=== PATIENT | female | born 1990 | race Caucasian/White ===

== ENCOUNTER 2022-10-13 15:09 | Observation (INO) | payer MEDICAID, SELFPAY ==
[2022-10-13 15:10] VITALS: BP 107/71; PULSE 101; RESP 16; TEMP 35.4; O2SAT 100; BMI 23.3
--- NOTE | 2022-10-13 16:16 | ED.RN ---
pt falling asleep in chair in hallway. awakens easily.
--- NOTE | 2022-10-13 16:58 | EX.ED.SAOD ---
HPI History of Present Illness Chief Complaint: Substance Abuse Narrative Narrative: 32-year-old female presenting for opiate detox. Last use was last night. Patient states has been snorting heroin for the last 6 months. She will use heroin or fentanyl. She is from [facility] but came out here to detox. She states she wanted to get away. [facility] Medical History (Updated 10/13/22 @ 17:42 by Mya Zaragoza) Substance abuse Allergy/AdvReac Type Severity Reaction Status Date / Time No Known Allergies Allergy Verified 10/13/22 16:16 Social History Smoking Status: Current every day smoker tobacco type: cigarettes ROS ROS ED Constitutional Constitutional ED: Denies chills, fever(s) or sweats Eyes Eyes: Denies blurry vision or change in vision ENT ENT ED: Denies ear pain or sore throat Cardiovascular Cardiovascular: Denies chest pain, palpitations or racing heartbeat Respiratory/Chest Respiratory/Chest: Denies cough, dyspnea or sputum Gastrointestinal Gastrointestinal: Denies abdominal pain, constipation, diarrhea, nausea or vomiting Genitourinary Genitourinary ED: Denies dysuria, hematuria or urinary frequency Musculoskeletal Musculoskeletal: Denies arthralgias, myalgias or neck pain Integumentary Denies abscess, Abrasions or rash Neurologic Neurologic: Denies headache(s), paresthesias or weakness Psychiatric Psychiatric: Denies anxiety, depression, suicidal ideation or suicidal thoughts Endocrine Endocrinology: Denies polydipsia or polyuria EXAM Physical Exam Const Vital Signs: 10/13/22 15:10 Temperature 95.8 F L Temperature Source Temporal Pulse Rate 101 H Respiratory Rate 16 Blood Pressure 107/71 Blood Pressure Mean 83 Pulse Ox 100 Oxygen Delivery Method Room Air General Appearance ED: Negative for pallor HEENT Reports normocephalic, head/scalp atraumatic and moist mucous membranes Eyes PERRL and EOMs intact bilaterally Neck no lymphadenopathy and supple Chest Wall inspection of chest normal and palpation of chest normal Resp normal respiratory effort and clear to auscultation bilaterally Auscultation: Negative for rales, rhonchi or wheezes Cardio regular rate and regular rhythm GI normal to inspection, nondistended, normoactive bowel sounds and non-distended Auscultation: normoactive bowel sounds Palpation: soft Narrative: Deferred Extremity normal to inspection General Extremety ED: Yes edema and tenderness General Extremity: edema Neuro oriented x3 and CN's II-XII intact bilaterally Sensorium / Orientation: alert Motor Exam: strength 5/5 throughout Psych mental status grossly normal Attitude: No agitated Skin no rashes or lesions noted and no wounds General Skin Exam: Negative for jaundice or pallor MDM MDM MDM Narrative Medical decision making narrative: 32-year-old female presenting for opiate detox. Medical clearance labs will be obtained. CBC for white blood cell count, hemoglobin, differential. CMP for liver function, renal function, electrolytes. Urine drug screen to assess for drugs of abuse. EtOH as well. Serum hCG to assess for . CBC shows a white blood cell count of 7.1, hemoglobin 11.2, platelets 241. CMP shows normal liver function, renal function, Leukos 73. Urine drug screen positive for amphetamines, MDMA, benzodiazepine, cannabinoids. EtOH negative. hCG negative patient's olman with hospitalist for admission. Impression: 1. Presentation for opioid detox 2. Amphetamine abuse 3. MDMA abuse Lab Data Attestation: I reviewed the patient's lab results. Labs: Laboratory Results - last 24 hr 10/13/22 10/13/22 10/13/22 17:29 17:38 17:38 WBC 7.1 RBC 4.83 Hgb 11.2 L Hct 38.0 MCV 78.7 L MCH 23.2 L MCHC 29.5 L RDW Std Deviation 52.6 H RDW Coeff of Blayne 19.0 H Plt Count 241 MPV 10.2 Immature Gran % (Auto) 0.400 Neut % (Auto) 46.4 L Lymph % (Auto) 37.4 [place] % (Auto) 5.0 Eos % (Auto) 9.0 H Baso % (Auto) 1.8 H Absolute Neuts (auto) 3.3 Absolute Lymphs (auto) 2.67 Nucleated RBC % 0 Sodium Potassium Chloride Carbon Dioxide Anion Gap BUN Creatinine Estim Creat Clear Calc Est GFR (MDRD) Af Amer Est GFR (MDRD) Non-Af BUN/Creatinine Ratio Glucose Calcium Total Bilirubin AST ALT Alkaline Phosphatase Total Protein Albumin Globulin Albumin/Globulin Ratio Serum , Qual NEGATIVE Urine Opiates Screen NEGATIVE Urine Methadone Screen NEGATIVE Ur Barbiturates Screen NEGATIVE Ur Phencyclidine Scrn NEGATIVE Ur Amphetamines Screen POSITIVE H MDMA (Ecstasy) Screen POSITIVE H U Benzodiazepines Scrn POSITIVE H Urine Cocaine Screen NEGATIVE U Cannabinoids Screen POSITIVE H Ur Drug Screen Comment 10/13/22 17:38 WBC RBC Hgb Hct MCV MCH MCHC RDW Std Deviation RDW Coeff of Blayne Plt Count MPV Immature Gran % (Auto) Neut % (Auto) Lymph % (Auto) [place] % (Auto) Eos % (Auto) Baso % (Auto) Absolute Neuts (auto) Absolute Lymphs (auto) Nucleated RBC % Sodium 139 Potassium 3.5 Chloride 104 Carbon Dioxide 30.0 Anion Gap 5 BUN 25 H Creatinine 1.00 Estim Creat Clear Calc 74.02 Est GFR (MDRD) Af Amer 83 Est GFR (MDRD) Non-Af 69 BUN/Creatinine Ratio 25.0 H Glucose 73 L Calcium 8.7 Total Bilirubin 0.20 AST 12 L ALT 12 L Alkaline Phosphatase 76 Total Protein 6.5 Albumin 3.2 Globulin 3.3 Albumin/Globulin Ratio 1.0 Serum , Qual Urine Opiates Screen Urine Methadone Screen Ur Barbiturates Screen Ur Phencyclidine Scrn Ur Amphetamines Screen MDMA (Ecstasy) Screen U Benzodiazepines Scrn Urine Cocaine Screen U Cannabinoids Screen Ur Drug Screen Comment Discharge Plan Triage Chief Complaint: Substance Abuse ED Provider: Ruben Fields Dx/Rx/DC Orders Primary Care Provider: Care Physician,No Primary Referrals: NOT,DEFINED [Non-Staff] -
--- NOTE | 2022-10-13 16:59 | CM.ED ---
Addendum entered by Destiny Porras 10/13/22 18:49: ABUNDIO provided patient with PCP information as per chart review patient has no PCP. Destiny FRANCIS Original Note: ABUNDIO Note Referral Reason: RAMP Referral Source: Case Find SW met with patient to discuss the RAMP program. Patient reports they are detoxing from opiates and xanax Patient said that she last used last night and when asked about how much she used she said not much... Patient reports using 1/4-1/2 gram a day but was attempting to wean herself. Patient is not linked with outpatient AOD provider currently but has been linked with [facility] in the past. Patient said that she wants the residential program at [facility] and had called them a couple of days ago. Patient was advised that the [facility] program includes no outside food or visitors, no phone access and all personal items are secured. ABUNDIO called Treatment Navigator and updated her regarding patient?s admission to [facility]. Plan: RAMP Destiny FRANCIS
[2022-10-13 17:48] LABS: Absolute Lymphocyte Count 2.67 X10^3/uL (0.83-4.51); Absolute Neutrophil Count 3.3 X10^3/uL (2.0-7.7); Basophil# 0.13 X10^3/uL; Basophil% 1.8 % (0-1); Eosinophil# 0.64 X10^3/uL; Hemoglobin 11.2 g/dL (12.0-15.0); Lymphocyte # 2.67 X10^3/ul (0.83-4.51); Lymphocyte % 37.4 % (19-41); Mean Corp Hgb Conc 29.5 g/dL (32-36); Mean Corpuscular Hgb 23.2 pg (27.0-32.0); Mean Corpuscular Volume 78.7 fL (81-99); Mean Platelet Vol. 10.2 fl (6.2-12.0); Monocyte# 0.36 X10^3/uL; NRBC Flagged by Analyzer 0 % (0-5); Neutrophil # 3.31 X10^3/uL (2.7-7.7); Neutrophil % 46.4 % (47-70); Platelet Count 241 K/mm3 (150-450); RBC Distribution Width SD 52.6 fl (35.1-43.9); Red Blood Count 4.83 M/mm3 (4.2-5.4); White Blood Count 7.1 K/mm3 (4.4-11.0)
[2022-10-13 18:03] LABS: Amphetamine Urine VISTA POSITIVE (<1000 ng/mL); Barbiturate Urine VISTA NEGATIVE (< 200 ng/mL); Benzodiazepine Urine VISTA POSITIVE (< 200 ng/mL); Cocaine Urine VISTA NEGATIVE (< 300 ng/mL); Ecstacy Urine VISTA POSITIVE (< 500 ng/mL); Methadone Urine VISTA NEGATIVE (< 300 ng/mL); PCP Urine VISTA NEGATIVE (< 25 ng/mL); THC Urine VISTA POSITIVE (< 50 ng/mL); Vista UDS pH Range 4
[2022-10-13 18:04] LABS: Internal QC Validated? YES +Cl - CLEAR BKGD; Pregnancy, Serum, hCG Quali. NEGATIVE Negative
[2022-10-13 18:06] LABS: AST(SGOT) 12 U/L (15-37); Alanine Aminotransfer ALT/SGPT 12 U/L (13-56); Albumin, Serum 3.2 g/dL (3.2-5.0); Alkaline Phosphatase 76 U/L (45-117); Anion Gap 5 (5-15); BUN 25 mg/dL (7-18); Calcium,Total 8.7 mg/dL (8.5-10.1); Chloride 104 mmol/L (98-107); EST Glomerular Filtration Rate 69 mL/min (>60); Est Glom Filt Rate - Afr Amer 83 mL/min (>60); Estimated Creatinine Clearance 74.02 ml/min; Globulin 3.3 g/dL (2.2-4.2); Glucose 73 mg/dL (74-106); Potassium 3.5 mmol/L (3.5-5.1); Protein, Total 6.5 g/dL (6.4-8.2); Sodium Level 139 mmol/L (136-145)
--- NOTE | 2022-10-13 18:10 | PCM.HP.STD ---
HPI - General General Date of Admission: 10/13/22 Date of Service: 10/13/22 Chief Complaint: Acute Opiate Withdrawal HPI Narrative The patient is a 32 y/o F w/ PMHx: Anxiety and Depression, Tobacco use, Polysubstance abuse (heroin/fentanyl primarily, snorted, usually 1/2 g to 1 g daily, last use evening prior with UDS also notable for amphetamine/MDMA/benzodiazepine/cannabis) who presents to the [facility] ED on 10/13/22 w/ noted acute opiate withdrawal onset starting on day of presentation following last dose the evening prior with abdominal pain/cramping, generalized body aches and pains, rhinorrhea, fatigue, restless leg, nausea without emesis. Patient interested in attaining clean status. She notes she started using approximately 6 months prior to current presentation and reports it is intermittent unfortunately having fallen with the wrong crowd. Work-up in the ED included T95.8, heart 101, BP 107/71, respiratory rate 16, 100% on room air, CBC with WC 7.1, hemoglobin 11.2, MCV 78.7, platelet 241 without marked shift, CMP with BUN/1 and 25/1.0, glucose 73, AST/LT 12/12 otherwise hepatic profile not marked appearing, serum negative, UDS with + amphetamine/MDMA/benzodiazepines/cannabis, ethyl alcohol less than 3. [facility] Medical History Anxiety and depression Polysubstance abuse Tobacco use Allergy/AdvReac Type Severity Reaction Status Date / Time No Known Allergies Allergy Verified 10/13/22 16:16 Family History (Updated 10/13/22 @ 19:[address] Loren Lujan MD) Father History of alcohol abuse Sober x 12 years. Mother Diabetes Surgical History (Updated 10/13/22 @ 19:[address] Loren Lujan MD) S/P D&C (status post dilation and curettage) Social History (Updated 10/13/22 @ 19:[address] Loren Lujan MD) household members: other details: Lives with her parents. Smoking Status: Current every day smoker tobacco type: cigarettes Smoking packs per day: 0.25 Smoking cigarettes per day: 5.0 alcohol intake: never substance use type: marijuana, heroin, amphetamines and other details: Also Fentanyl. Reports only snorting, using 1/2-1 gm daily heroin/fentanyl. ROS ROS Narrative Admission Review of Systems: CONSTITUTIONAL: No weight loss, fever, chills, + weakness or fatigue. HEENT: + rhinorrhea, congestion. Eyes: No visual loss, blurred vision, double vision or yellow sclerae. Ears, Nose, Throat: No hearing loss, sneezing, sore throat. SKIN: No rash or itching, lesions, wounds. CARDIOVASCULAR: No chest pain, chest pressure or chest discomfort, palpitations, edema, orthopnea, syncopal events. RESPIRATORY: No shortness of breath, cough or sputum, wheezing, hemoptysis. GASTROINTESTINAL: + anorexia, nausea without vomiting, abdominal cramping, No diarrhea, melena, BRBPR. GENITOURINARY: No dysuria, frequency, urgency or retention. NEUROLOGICAL: No headache, dizziness, syncope, paralysis, ataxia, numbness or tingling in the extremities, focal weakness, change in bowel or bladder control, seizure. MUSCULOSKELETAL: + muscle, back pain, joint pain or stiffness. HEMATOLOGIC: + anemia, bleeding or bruising. LYMPHATICS: No enlarged nodes. No history of splenectomy. PSYCHIATRIC: + history of depression or anxiety. ENDOCRINOLOGIC: No reports of sweating, cold or heat intolerance. No polyuria or polydipsia. ALLERGIES: No history of asthma, hives, eczema or rhinitis. Vital Signs Vital Signs Vital Signs: 10/13/22 15:10 Temperature 95.8 F L Temperature Source Temporal Pulse Rate 101 H Respiratory Rate 16 Blood Pressure 107/71 Blood Pressure Mean 83 Pulse Ox 100 Oxygen Delivery Method Room Air Weight Weight: 140 lb Body Mass Index (BMI) 23.3 Physical Exam Narrative Physical Examination: General: Awake, alert, oriented x 3 and cooperative, seated upright in the ED bed, fatigued but restless. Skin: Normal color, normal turgor, no icterus, no cyanosis except for occasional scratch boyd or abrasions. HEENT: AT/NC, EOMI, PERRLA, dry MM, no carotid bruits or JVD noted. Lungs: CTA bilaterally, moderate effort, no rales, ronchi or wheezing. Heart: Mildly tachycardic with regular rhythm; no gallop, rub audible. Abdomen: Soft, mild generalized discomfort with palpation but no rebound or guarding, ND, hyperactive BS, no HSM. Extremities: No cyanosis, clubbing, or edema. Neurological: Patient awake, alert, oriented as noted, cognitive function intact; pupils equally reactive to light and accommodation, cranial nerves II-XII grossly normal, moving all 4 extremities, no focal deficits, strength moderately global decrease secondary to acute presentation and withdrawal, restless. Psychiatric: Affect appears restless, no acute evidence of depressive or anxiety feelings but does have underlying history. Results Lab / Micro Data Result Diagrams: 10/13/22 17:38 10/13/22 17:38 Labs: Laboratory Results - last 24 hr 10/13/22 17:29: Urine Opiates Screen NEGATIVE, Urine Methadone Screen NEGATIVE, Ur Barbiturates Screen NEGATIVE, Ur Phencyclidine Scrn NEGATIVE, Ur Amphetamines Screen POSITIVE H, MDMA (Ecstasy) Screen POSITIVE H, U Benzodiazepines Scrn POSITIVE H, Urine Cocaine Screen NEGATIVE, U Cannabinoids Screen POSITIVE H, Ur Drug Screen Comment 10/13/22 17:38: WBC 7.1, RBC 4.83, Hgb 11.2 L, Hct 38.0, MCV 78.7 L, MCH 23.2 L, MCHC 29.5 L, RDW Std Deviation 52.6 H, RDW Coeff of Blayne 19.0 H, Plt Count 241, MPV 10.2, Immature Gran % (Auto) 0.400, Neut % (Auto) 46.4 L, Lymph % (Auto) 37.4, [place]les % (Auto) 5.0, Eos % (Auto) 9.0 H, Baso % (Auto) 1.8 H, Absolute Neuts (auto) 3.3, Absolute Lymphs (auto) 2.67, Nucleated RBC % 0 10/13/22 17:38: Serum , Qual NEGATIVE 10/13/22 17:38: Sodium 139, Potassium 3.5, Chloride 104, Carbon Dioxide 30.0, Anion Gap 5, BUN 25 H, Creatinine 1.00, Estim Creat Clear Calc 74.02, Est GFR (MDRD) Af Amer 83, Est GFR (MDRD) Non-Af 69, BUN/Creatinine Ratio 25.0 H, Glucose 73 L, Calcium 8.7, Total Bilirubin 0.20, AST 12 L, ALT 12 L, Alkaline Phosphatase 76, Total Protein 6.5, Albumin 3.2, Globulin 3.3, Albumin/Globulin Ratio 1.0 Assessment & Plan Assessment/Plan (1) Opiate withdrawal: PLAN: Plan The patient is a 32 y/o F w/ PMHx: Anxiety and Depression, Tobacco use, Polysubstance abuse (heroin/fentanyl primarily, snorted, usually 1/2 g to 1 g daily, last use evening prior with UDS also notable for amphetamine/MDMA/benzodiazepine/cannabis) who presents to the [facility] ED on 10/13/22 w/ noted acute opiate withdrawal onset. #1. Acute Opiate Withdrawal: Will admit to [facility], routine labs including CBC, CMP, urine for drug screen obtained in the ED as noted, will initiate and continue on protocol with tapering course of Subutex, as needed tylenol, ibuprofen, bowel regimen, gabapentin, Bentyl, Vistaril, methocarbamol, clonidine, PRN nightly trazodone for insomnia, IV fluids, IV antiemetics. Once patient clinically improved and completion of taper nearing will plan consultation with case management for transition to next level of rehabilitation care. #2. Polysubstance Abuse: Patient currently denies any IV drug abuse history but following discussions given poor choices often made while under the influence amenable to HIV and hepatitis panel being obtained. #3. Tobacco Abuse: Encouraged cessation, inpatient consultation per RT, NR if desired. #4. Hyperglycemia, mild, likely secondary to #1: Patient with read sent decreased intake with nausea and abdominal cramping with acute opiate withdrawal, encourage oral intake and if necessary we utilize hypoglycemic protocol. #5. Anemia, microcytic: Patient is unaware of this history, will obtain iron panel, ferritin and guaiac to be cautious as patient is high risk for not following up and will also need to review her menstrual cycle history as potentially she could have heavy cycles. #6. Anxiety and depression: Not on any regimen, likely contributing greatly to her substance abuse issue, would greatly benefit from counseling and potential medications once transitions to next step. #7. DVT prophylaxis: Low risk, encourage ambulation. Admission Evaluation Time spent evaluating chart, patient history, patient evaluation, care planning and discussion with specialists: 60 minutes.
--- NOTE | 2022-10-13 18:25 | NURSING ---
MED SURG WHITE OPIOD DETOX
[2022-10-13 18:29] VITALS: BP 99/69; PULSE 89; RESP 18; TEMP 35.8; O2SAT 100
[2022-10-13 18:30] VITALS: RESP 16
[2022-10-13 18:33] LABS: Alcohol, Blood (Medical)-Serum < 3.0 mg/dL
[2022-10-13 19:02] VITALS: RESP 16
[2022-10-13 19:23] LABS: HIV - WCH Non-Reactive (Nonreactive)
[2022-10-13 20:32] VITALS: BP 113/60; PULSE 98; RESP 16; TEMP 36.4; O2SAT 100; BMI 23.1
[2022-10-13 22:02] LABS: Ferritin 5 ng/mL (8-252); Iron 23 ug/dL (50-170); Iron Binding Capacity,Total 488 ug/dL (250-450); PERCENT IRON SATURATION 4.7 % (15.0-55.0)
[2022-10-13 23:00] LABS: Hepatitis B Surface Antibody Reactive; Hepatitis B Surface Antigen Non-Reactive (Nonreactive); Hepatitis C Antibody Non-Reactive (Nonreactive)
[2022-10-14] VITALS (8 sets, daily range): BP systolic 94–130; BP diastolic 56–74; PULSE 91–114; RESP 14–18; TEMP 36.5–36.9; O2SAT 95–100
[2022-10-14] MEDS: Buprenorphine HCl 2 MG TAB.SUBL SL ×3 (00:29→16:22)
[2022-10-14] MEDS: traZODone 100 MG Tablet PO (00:29)
[2022-10-14] MEDS: Methocarbamol 750 MG Tablet 1500 MG PO ×2 (00:29→20:03)
[2022-10-14] MEDS: hydrOXYzine PAM 25 MG Capsule 50 MG PO ×2 (04:29→20:03)
[2022-10-14] MEDS: Gabapentin 300 MG Capsule PO ×2 (04:29→20:03)
[2022-10-14] MEDS: cloNIDine HCl 0.1 MG Tablet PO ×2 (04:29→20:03)
--- NOTE | 2022-10-14 07:06 | PN.HOSP_ITS ---
Reason for Visit Reason for Visit: Diagnoses Opioid use, unspecified with withdrawal (10/13/22) Subjective Subjective Ms. Rojas is a 32-year-old white female who presented to the emergency department on 10/13/2022 for opiate detox. Her last use was on the p.m. of 10/12/2022. Upon presentation she was in acute withdrawal with abdominal pain and cramping, generalized body aches, rhinorrhea, fatigue, restless leg, nausea but no vomiting. Patient reported she started using approximately 6 months prior to presentation. She uses this exclusively intranasally. Toxicology screen was positive for MDMA, amphetamines, and cannabis as well as benzodiazepines. She is on no medications at home. Hepatitis C and HIV are both nonreactive. She has immunity to hepatitis B. She was admitted to the medical floor and placed on a Subutex taper per [facility] protocol along with supportive medications. Patient is quite sleepy at this time. Awakens and answers questions but was recently medicated. No significant issues and no current symptoms. Objective Data Objective Data Vital Signs: Vital Signs Temp Pulse Resp BP Pulse Ox O2 Del Method 98.2 F 114 H 18 130/74 H 100 Room Air 10/14/22 04:26 10/14/22 04:26 10/14/22 04:26 10/14/22 04:26 10/14/22 04:26 10/14/22 04:26 Oxygen Delivery Method Room Air Weight: 62.9 kg Body Mass Index (BMI) 23.1 Lab / Micro Data Result Diagrams: 10/13/22 17:38 10/13/22 17:38 Labs: Laboratory Results - last 24 hr 10/13/22 17:29: Urine Opiates Screen NEGATIVE, Urine Methadone Screen NEGATIVE, Ur Barbiturates Screen NEGATIVE, Ur Phencyclidine Scrn NEGATIVE, Ur Amphetamines Screen POSITIVE H, MDMA (Ecstasy) Screen POSITIVE H, U Benzodiazepines Scrn POSITIVE H, Urine Cocaine Screen NEGATIVE, U Cannabinoids Screen POSITIVE H, Ur Drug Screen Comment 10/13/22 17:38: WBC 7.1, RBC 4.83, Hgb 11.2 L, Hct 38.0, MCV 78.7 L, MCH 23.2 L, MCHC 29.5 L, RDW Std Deviation 52.6 H, RDW Coeff of Balyne 19.0 H, Plt Count 241, MPV 10.2, Immature Gran % (Auto) 0.400, Neut % (Auto) 46.4 L, Lymph % (Auto) 37.4, [place] % (Auto) 5.0, Eos % (Auto) 9.0 H, Baso % (Auto) 1.8 H, Absolute Neuts (auto) 3.3, Absolute Lymphs (auto) 2.67, Nucleated RBC % 0 10/13/22 17:38: Ethyl Alcohol < 3.0 10/13/22 17:38: Serum , Qual NEGATIVE 10/13/22 17:38: Sodium 139, Potassium 3.5, Chloride 104, Carbon Dioxide 30.0, Anion Gap 5, BUN 25 H, Creatinine 1.00, Estim Creat Clear Calc 74.02, Est GFR (MDRD) Af Amer 83, Est GFR (MDRD) Non-Af 69, BUN/Creatinine Ratio 25.0 H, Gluc ose 73 L, Calcium 8.7, Total Bilirubin 0.20, AST 12 L, ALT 12 L, Alkaline Phosphatase 76, Total Protein 6.5, Albumin 3.2, Globulin 3.3, Albumin/Globulin Ratio 1.0 10/13/22 17:38: Iron 23 L, TIBC 488 H, Iron Saturation 4.7 L, Ferritin 5 L 10/13/22 17:38: Hep Bs Antigen Non-Reactive, Hep Bs Antibody Reactive, Hepatitis C Antibody Non-Reactive 10/13/22 18:25: HIV 1&2 Antibody Non-Reactive Physical Exam Const no apparent distress, average body habitus and well nourished Constitutional Narrative: Middle-aged white female lying in bed, sleeping, awakes enough to answer simple questions but fairly drowsy HEENT head/scalp atraumatic and moist oral mucous membranes Head and Scalp: normocephalic Resp normal respiratory effort, no retractions, no use of accessory muscles and clear to auscultation bilaterally Auscultation: Negative for crackles, rhonchi or wheezes Cardio regular rate, regular rhythm, S1 normal heart sound, S2 normal heart sound, no murmurs, no rub, no gallops and no clicks GI normal to inspection, nondistended, normoactive bowel sounds, soft to palpation and non-tender Extremity no clubbing, cyanosis or edema Extremity Narrative: 2+ pedal pulses Assessment & Plan Assessment/Plan (1) Opiate withdrawal: (2) Iron (Fe) deficiency anemia: PLAN: Plan Acute opiate withdrawal -Last use p.m. to 03/24/2023 -Uses intranasally -HIV and hepatitis C are nonreactive -Subutex taper per [facility] protocol -Supportive medications -180 consultation for discharge planning Iron deficiency anemia -Patient was noted to be mildly anemic with a hemoglobin of 11.2 and a low MCV on admission -Iron studies are consistent with iron deficiency -Start oral ferrous sulfate 325 mg 3 times daily -Full dose conjointly with vitamin C for improved absorption -As needed MiraLAX in case iron causes constipation -Will need outpatient prescription for ferrous sulfate and vitamin C at discharge Anxiety/depression -Likely contributing to her opiate use -180 follow-up and patient will likely need counseling after discharge -Patient currently not on any medication regimen and we will hold off on this at this time. Tobacco abuse -Encourage cessation -Nicotine replacement is available DVT prophylaxis -Low risk -Encourage ambulation CODE STATUS -Full code Charges/Coding Visit Charges Inpatient E&M: 82347 Subs Hosp L2
[2022-10-14] MEDS: Ascorbic Acid 500 MG Tablet PO ×2 (08:47→20:03)
[2022-10-14] MEDS: Ferrous Sulfate 325 MG Tablet PO ×2 (08:47→16:22)
--- NOTE | 2022-10-14 09:32 | ADDICTION ---
This SW went to engage with pt, but she was sleeping. Several attempts to rouse, but were unsuccessful. I did contact [facility] staff and there is an open residential bed. Nursing staff noted she had a rough night and was heavily sedated.
[2022-10-14] MEDS: Ibuprofen 600 MG Tablet PO (20:03)
[2022-10-15] MEDS: Buprenorphine HCl 2 MG TAB.SUBL SL ×4 (00:29→23:46)
[2022-10-15] MEDS: traZODone 100 MG Tablet PO ×2 (00:29→22:01)
[2022-10-15] MEDS: Methocarbamol 750 MG Tablet 1500 MG PO ×4 (02:34→22:01)
[2022-10-15] MEDS: hydrOXYzine PAM 25 MG Capsule 50 MG PO ×3 (02:34→22:02)
[2022-10-15] MEDS: Dicyclomine 10 MG Capsule 20 MG PO ×4 (02:34→22:01)
[2022-10-15 05:49] VITALS: BP 105/56; PULSE 90; RESP 14; TEMP 36.4; O2SAT 99
[2022-10-15] MEDS: Ferrous Sulfate 325 MG Tablet PO ×3 (05:53→16:29)
[2022-10-15] MEDS: Ascorbic Acid 500 MG Tablet PO ×3 (05:53→22:01)
[2022-10-15 08:23] VITALS: O2SAT 98
[2022-10-15] MEDS: Ibuprofen 600 MG Tablet PO ×2 (08:26→19:56)
[2022-10-15] MEDS: Gabapentin 300 MG Capsule PO ×2 (08:26→19:57)
[2022-10-15 08:34] VITALS: BP 98/52; PULSE 71; RESP 16; TEMP 36.8; O2SAT 98
--- NOTE | 2022-10-15 11:31 | PN.HOSP_ITS ---
Reason for Visit Reason for Visit: Diagnoses Iron deficiency anemia, unspecified (10/13/22) Opioid use, unspecified with withdrawal (10/13/22) Subjective Subjective No issues overnight. Patient states she still having some nausea and myalgias. Plans to do residential at discharge. Admits to very heavy periods at baseline. Objective Data Objective Data Vital Signs: Vital Signs Temp Pulse Resp BP Pulse Ox O2 Del Method 98.2 F 71 16 98/52 L 98 Room Air 10/15/22 08:34 10/15/22 08:34 10/15/22 08:34 10/15/22 08:34 10/15/22 08:34 10/15/22 08:40 Oxygen Delivery Method Room Air Weight: 62.9 kg Body Mass Index (BMI) 23.1 Lab / Micro Data Result Diagrams: 10/13/22 17:38 10/13/22 17:38 Physical Exam Const alert, oriented x3, no apparent distress, average body habitus and well nourished Constitutional Narrative: Middle-aged white female lying in bed, eyes closed but much more awake today and answers questions appropriately, less drowsiness, appears comfortable and nontoxic HEENT head/scalp atraumatic and moist oral mucous membranes HEENT Narrative: Mallampati is 2 Head and Scalp: normocephalic Resp normal respiratory effort, no retractions, no use of accessory muscles and clear to auscultation bilaterally Auscultation: Negative for crackles, rhonchi or wheezes Cardio regular rate, regular rhythm, S1 normal heart sound, S2 normal heart sound, no murmurs, no rub, no gallops and no clicks GI normal to inspection, nondistended, normoactive bowel sounds, soft to palpation and non-tender Extremity no clubbing, cyanosis or edema Extremity Narrative: 2+ pedal pulses Neuro oriented x3, moves all extremities and no focal motor deficits Speech: speech normal Assessment & Plan Assessment/Plan (1) Opiate withdrawal: (2) Iron (Fe) deficiency anemia: PLAN: Plan Acute opiate withdrawal -Last use p.m. to 03/24/2023 -Uses intranasally -HIV and hepatitis C are nonreactive -Subutex taper per [facility] protocol -Supportive medications -180 consultation for discharge planning--> patient at this time is planned to go to residential treatment at discharge Iron deficiency anemia -Patient admits to very heavy menstrual periods -Patient was noted to be mildly anemic with a hemoglobin of 11.2 and a low MCV on admission -Iron studies are consistent with iron deficiency -Start oral ferrous sulfate 325 mg 3 times daily -Full dose conjointly with vitamin C for improved absorption -As needed MiraLAX in case iron causes constipation -Will need outpatient prescription for ferrous sulfate and vitamin C at disch arge Anxiety/depression -Likely contributing to her opiate use -180 follow-up and patient will likely need counseling after discharge -Patient currently not on any medication regimen and we will hold off on this at this time. Tobacco abuse -Encourage cessation -Nicotine replacement is available DVT prophylaxis -Low risk -Encourage ambulation CODE STATUS -Full code Charges/Coding Visit Charges Inpatient E&M: 22730 Subs Hosp L2
--- NOTE | 2022-10-15 13:06 | ADDICTION ---
This SW met with patient to complete ASAM, DUDIT, AUDIT, MSE, and discuss discharge planning. She was found appropriate for ASAM 4.0. She was sleeping upon entrance, but able to be roused. She was alert and oriented x4, willing and engaged to discuss what brought her to treatment as well as discharge plans. She is open to going to [facility]. The plan would be to direct discharge on 10/18/22. She asked about going home first, to parent's in [place]. However, direct admit would be best, which was discussed. ASHLEY Smith
[2022-10-15 14:30] VITALS: BP 110/64; PULSE 95; RESP 19; TEMP 36.6; O2SAT 99
[2022-10-15] MEDS: cloNIDine HCl 0.1 MG Tablet PO (14:51)
[2022-10-15 19:44] VITALS: BP 110/69; PULSE 100; RESP 18; TEMP 36.9; O2SAT 98
[2022-10-16 02:13] VITALS: BP 107/67; PULSE 96; RESP 18; TEMP 36.4; O2SAT 99
[2022-10-16] MEDS: cloNIDine HCl 0.1 MG Tablet PO (02:22)
[2022-10-16] MEDS: Acetaminophen 325 MG Tablet 650 MG PO (02:23)
[2022-10-16] MEDS: Gabapentin 300 MG Capsule PO (05:21)
[2022-10-16] MEDS: Ascorbic Acid 500 MG Tablet PO ×2 (05:21→12:30)
[2022-10-16 07:11] VITALS: O2SAT 96
[2022-10-16 08:15] VITALS: BP 97/67; PULSE 83; RESP 18; TEMP 36.5; O2SAT 99
[2022-10-16] MEDS: Ferrous Sulfate 325 MG Tablet PO ×2 (08:46→12:30)
[2022-10-16] MEDS: Buprenorphine HCl 2 MG TAB.SUBL SL (12:30)
[2022-10-16 15:00] VITALS: BP 105/66; PULSE 109; RESP 18; TEMP 36.6; O2SAT 98
--- NOTE | 2022-10-16 16:04 | PN.HOSP_ITS ---
Reason for Visit Reason for Visit: Diagnoses Iron deficiency anemia, unspecified (10/13/22) Opioid use, unspecified with withdrawal (10/13/22) Subjective Subjective Patient was seen and examined today, she is resting quietly but was able to be woken up and denied any issues. Objective Data Objective Data Vital Signs: Vital Signs Temp Pulse Resp BP Pulse Ox O2 Del Method 97.9 F 109 H 18 105/66 98 Room Air 10/16/22 15:00 10/16/22 15:00 10/16/22 15:00 10/16/22 15:00 10/16/22 15:00 10/16/22 15:00 Oxygen Delivery Method Room Air Weight: 62.9 kg Body Mass Index (BMI) 23.1 Lab / Micro Data Result Diagrams: 10/13/22 17:38 10/13/22 17:38 Physical Exam Const alert, oriented x3, no apparent distress, average body habitus and healthy appearing General Appearance: cooperative, well kempt and well developed Orientation / Consciousness: awake, oriented to person, oriented to place and o riented to time HEENT normocephalic, head/scalp atraumatic and moist oral mucous membranes Eyes PERRL, EOMs intact bilaterally and conjunctivae normal Neck supple, no JVD, thyroid normal and no carotid bruits General: trachea midline Resp normal respiratory effort, no retractions, no use of accessory muscles and clear to auscultation bilaterally Auscultation: Negative for rales, rhonchi or wheezes Cardio regular rate, regular rhythm, S1 normal heart sound, S2 normal heart sound, no murmurs, no rub and no gallops GI normal to inspection, nondistended, normoactive bowel sounds, soft to palpation, non-tender and non-distended Extremity no clubbing, cyanosis or edema Skin no rashes or lesions noted General Skin Exam: no breakdown Neuro oriented x3, CN's II-XII intact bilaterally, no focal motor deficits and no sensory deficits noted Sensorium / Orientation: awake and alert Speech: speech normal Psych affect normal Assessment & Plan Assessment/Plan (1) Opiate withdrawal: PLAN: Plan 1. Opiate withdrawal-continue present medications, patient does not exhibit any severe withdrawal symptoms at this time #2 chronic opiate addiction-patient will go to [facility] on this Tuesday for inpatient detox services. #3 polysubstance abuse-complicates care, medical course, recovery, and prognosis #4 iron deficiency anemia-continue oral ferrous sulfate Total clinical time spent by myself addressing the patient's medical issues, reviewing all the data, and collaborating with patient's care team: 36 minutes Charges/Coding Visit Charges Inpatient E&M: 64304 Subs Hosp L2
--- NOTE | 2022-10-16 17:10 | DS.PCM_ITS ---
Providers Date of Admission: 10/13/22 Date of Discharge: 10/16/22 Primary Care Physician: No Primary Care Phys Reason For Visit: ACUTE OPIATE WITHDRAWAL Diagnosis Discharge Diagnosis (1) Opiate withdrawal: Status: Acute Code(s): F11.93 - Opioid use, unspecified with withdrawal Plan 1. Opiate withdrawal-continue present medications, patient does not exhibit any severe withdrawal symptoms at this time #2 chronic opiate addiction-patient will go to [facility] on this Tuesday for inpatient detox services. #3 polysubstance abuse-complicates care, medical course, recovery, and prognosis #4 iron deficiency anemia-continue oral ferrous sulfate Total clinical time spent by myself addressing the patient's medical issues, reviewing all the data, and collaborating with patient's care team: 36 minutes Medications at Discharge Home Medications NK 10/13/22 Hospital Course Operations None Procedures None Summary of Care Provided Minutes Spent on Discharge: 31 Hospital Course: Hannahs seen and examined in the emergency room at [facility] since for opioid detox, labs obtained in the emergency room revealed a normal CBC except for hemoglobin of 11.2, patient's serum iron level was low, and her chemistry profile was unremarkable. Patient's talk screen was positive for amphetamines, ecstasy, benzodiazepines, and cannabinoids. Patient was admitted to [place] [address] using the opiate detox order set, she was seen in consultation by addiction social work faculty member who was set up for the patient to go to inpatient detox at the time of discharge from the hospital, this was to be on 10/18/2022. On 10/16/2022, patient was seen and examined: On examination she appeared in good health and spirits, she does not appear to be in any distress. Vital signs as documented. Skin warm and dry and without overt rashes. Neck without JVD, thyroid appears normal, trachea is midline, neck is supple. Lungs clear, normal air movement was noted. Heart exam notable for regular rhythm, normal sounds and absence of murmurs, rubs or gallops. Abdomen unremarkable and without evidence of organomegaly, masses, or abdominal aortic enlargement, bowel sounds are present in all 4 quadrants, no abdominal tenderness was noted. Extremities nonedematous, no cyanosis was noted, no clubbing was noted. Neuro: Cranial nerves II through XII are grossly intact, no focal motor deficits were noted, sensation to light touch and pinprick is intact, motor exam 5/5 throughout. Psych: Patient is alert and oriented x3, she does not appear anxious or depressed, she does not appear agitated. On 10/16/2022 in the late afternoon, I was advised by nursing that the patient decided to check herself out AMA, the reason given according to nursing was that she wanted to go home. Patient appeared in stable condition at the time of her discharge. Weight / BMI Weight Weight: 62.9 kg Body Mass Index (BMI) 23.1 ABG / Lab / Microbiology Data Result Diagrams: 10/13/22 17:38 10/13/22 17:38 Meaningful Use Info Meaningful Use Diagnoses (Choose all that apply): None applicable Discharge Plan Admission Admit Date/Time: 10/13/22 18:10 Attending Provider: Erick Prescott Primary Care Provider: Care Physician,No Primary Consulting Providers: Loren Lujan Kathryn Discharge Orders/Prescriptions Prescriptions: No Action NK Referrals / Follow Up: NOT,DEFINED [Non-Staff] - Care Physician,No Primary [Primary Care Provider] - Disposition Discharge Orders: Discharge Patient (Routine); Ordered 10/16/22 Ordered By: Dr. Erick Prescott Charges/Coding Visit Charges Inpatient E&M: 92260 Disch Hosp >30min
== END 2022-10-16 17:10 | disposition left against medical advice (07) ==
LOC: ED 17:16 → MS3 10-14 06:55
PROVIDERS: Admitting Provider Family Medicine; Emergency Provider Student in an Organized Health Care Education/Training Program; Visit Provider Internal Medicine
DX: F11.23 Opioid dependence with withdrawal (principal); F16.10 Hallucinogen abuse, uncomplicated; D50.9 Iron deficiency anemia, unspecified; F12.90 Cannabis use, unspecified, uncomplicated; E16.2 Hypoglycemia, unspecified; F17.210 Nicotine dependence, cigarettes, uncomplicated; N92.0 Excessive and frequent menstruation with regular cycle
CPT/HCPCS: 36415; 80053; 80307; 82077; 82728; 83540; 83550; 84703; 85025; 86703; 86706; 86803; 87340; 99283; H0012

== ENCOUNTER 2022-10-20 16:54 | Observation (INO) | payer MEDICAID, SELFPAY ==
[2022-10-20 16:54] VITALS: BP 122/81; PULSE 93; RESP 16; TEMP 35.5; O2SAT 100; BMI 23.3
--- NOTE | 2022-10-20 18:07 | PCM.HP.STD ---
HPI - General General Date of Admission: 10/20/22 Date of Service: 10/20/22 Chief Complaint: Request for medical stabilization for opioid withdrawal HPI Narrative RAJ CÁRDENAS, is a 32 F who presents with the above. 32-year-old female with past medical history of anxiety/depression, nicotine abuse who comes in at the request of [facility] for medical stabilization. Patient recently signed out AGAINST MEDICAL ADVICE on 10/16/22. Patient had followed up with [facility] today and was asked to call. [facility] Medical History Anxiety and depression Polysubstance abuse Tobacco use Home Medications NK 10/13/22 [History Last Taken Unknown] Allergy/AdvReac Type Severity Reaction Status Date / Time No Known Allergies Allergy Verified 10/20/22 16:57 Family History Father History of alcohol abuse Sober x 12 years. Mother Diabetes Surgical History S/P D&C (status post dilation and curettage) Social History household members: other details: Lives with her parents. Smoking Status: Current every day smoker tobacco type: cigarettes alcohol intake: never substance use type: marijuana, heroin, amphetamines and other details: Also Fentanyl. Reports only snorting, using 1/2-1 gm daily heroin/fentanyl. ROS ROS Narrative Constitutional: Denies: Anorexia, Chills, Fever, Night Sweats, Weight Change Eyes: Denies: Blurred vision, Cataracts, Conjunctivae Inflammation, Pain, Redness, Vision Change HEENT: Denies: Difficulty Hearing, Difficulty Swallowing, Head Aches, Hearing Changes, Sinus Congestion, Sinus Drainage Cardiovascular: Denies: Chest Pain, Orthopnea, Palpitations Respiratory: Denies: Cough, Shortness of breath at rest, Sputum production Gastrointestinal: Denies: Abdominal Pain, Nausea, Vomiting Genitourinary: Denies: Dysuria Musculoskeletal: Denies: Joint Pain, Joint stiffness, Joint swelling, Joint Tenderness Skin: Denies: Rash, Wounds Neurological: Denies: Numbness, Tingling, Focal weakness Vital Signs Vital Signs Vital Signs: 10/20/22 16:54 Temperature 96 F L Temperature Source Temporal Pulse Rate 93 Respiratory Rate 16 Blood Pressure 122/81 H Blood Pressure Mean 94 Pulse Ox 100 Oxygen Delivery Method Room Air Weight Weight: 63.503 kg Body Mass Index (BMI) 23.3 Physical Exam Narrative Physical exam: General: Alert, Oriented x3, Cooperative HEENT: Atraumatic Oral: Moist Mucosa Neck: Supple Lungs: Clear to auscultation Cardiovascular: HS I+II, regular, no murmurs Abdomen: Bowel Sounds Present, Soft, Non Tender Extremities: No edema Skin: No rashes, No breakdown Neurological: Grossly intact Psych/Mental Status: Appropriate Results Lab / Micro Data Result Diagrams: 10/20/22 18:25 10/20/22 18:25 Assessment & Plan Assessment/Plan (1) Opiate withdrawal: (2) Iron (Fe) deficiency anemia: PLAN: Plan 1. Request for medical stabilization against opiate withdrawal Will admit for medical stabilization Will monitor on acute withdrawal protocol Addiction social work consult 2. Chronic iron deficiency anemia, continue on oral iron 3. Anxiety/depression, not on meds now 4. Nicotine dependence, advised to quit Continue on replacement parameters 5. DVT PPx- low risk, SCDs Charges/Coding Addendum Addendum: Total time spent: 55 minutes of which more > 50% was spent in reviewing patient's chart, laboratory investigations, imaging, taking history and physical examining patient and going over plan of care with patient. Visit Charges Inpatient E&M: 33362 Init Hosp L2
[2022-10-20 18:36] LABS: Absolute Lymphocyte Count 2.69 X10^3/uL (0.83-4.51); Absolute Neutrophil Count 3.1 X10^3/uL (2.0-7.7); Basophil# 0.07 X10^3/uL; Eosinophils% 8.6 % (0-5); Hematocrit 35.7 % (37-47); Hemoglobin 10.8 g/dL (12.0-15.0); Lymphocyte # 2.69 X10^3/ul (0.83-4.51); Lymphocyte % 38.8 % (19-41); Mean Corp Hgb Conc 30.3 g/dL (32-36); Mean Corpuscular Hgb 23.8 pg (27.0-32.0); Mean Corpuscular Volume 78.8 fL (81-99); Mean Platelet Vol. 9.7 fl (6.2-12.0); Monocyte# 0.42 X10^3/uL; Monocyte% 6.1 % (0-10); NRBC Flagged by Analyzer 0 % (0-5); Neutrophil # 3.14 X10^3/uL (2.7-7.7); Neutrophil % 45.2 % (47-70); POSITIVE MORPHOLOGY YES; Platelet Count 250 K/mm3 (150-450); RBC Distribution Width CV 20.9 % (11.6-14.6); RBC Distribution Width SD 58.5 fl (35.1-43.9); Red Blood Count 4.53 M/mm3 (4.2-5.4); White Blood Count 6.9 K/mm3 (4.4-11.0)
[2022-10-20 18:38] LABS: Differential Indicated SCAN CRITERIA MET
[2022-10-20 18:53] LABS: Internal QC Validated? YES +Cl - CLEAR BKGD; Pregnancy, Serum, hCG Quali. NEGATIVE Negative
[2022-10-20 18:54] LABS: Anion Gap 9 (5-15); BUN 26 mg/dL (7-18); BUN/Creat Ratio 24.8 RATIO (10-20); Calcium,Total 8.8 mg/dL (8.5-10.1); Chloride 104 mmol/L (98-107); Creatinine, Serum 1.05 mg/dL (0.55-1.02); EST Glomerular Filtration Rate 65 mL/min (>60); Est Glom Filt Rate - Afr Amer 79 mL/min (>60); Glucose 104 mg/dL (74-106); Potassium 3.2 mmol/L (3.5-5.1); Sodium Level 141 mmol/L (136-145)
[2022-10-20 19:07] VITALS: BP 106/69; PULSE 96; RESP 14; TEMP 36.2; O2SAT 100
[2022-10-20 19:08] LABS: Anisocytosis 1+; Differential Comment SCANNED
--- NOTE | 2022-10-20 19:42 | CM.ED ---
ABUNDIO Note Referral Reason: RAMP Referral Source: Case Find SW met with patient to discuss the RAMP program. Patient reports they are detoxing from meth and patient voiced there was fentanyl in the meth she used. Patient is working with treatment navigator/addiction therapist Ambrosio and the plan is for residential program at [facility] at discharge. Patient was advised that the RAMP program includes no outside food or visitors, no phone access and all personal items are secured. SW called Treatment Navigator and updated her regarding patient?s admission to [facility]. Plan: [facility] Destiny FRANCIS
[2022-10-20 19:52] VITALS: BMI 22.4
[2022-10-20 20:03] VITALS: BP 106/65; PULSE 89; RESP 16; TEMP 36.8; O2SAT 100
--- NOTE | 2022-10-20 23:57 | EX.ED.SAOD ---
HPI History of Present Illness Chief Complaint: Substance Abuse Informant: patient Onset/Context/Timing Onset: Yesterday Context: Gradual Onset Timing: Continuous Worsened by: Nothing Relieved by: Nothing Associated Symptoms Associated Symptoms: Positive for no; Negative for vomiting*, diarrhea*, fever*, rash*, seizure, tremor, palpatations, change in mental status, trauma, suicidal ideation or homicidal ideation Narrative Narrative: Presents requesting detox from opiates, methamphetamines, and alcohol. Patient states she was recently admitted to the hospital for detox. Patient signed out AGAINST MEDICAL ADVICE after 2 days in the hospital. Patient states she started using again. Patient states she only used methamphetamines. However, patient stated she followed up with [facility] earlier today and they did a urine tox screen there which was positive for opiates. On the patient's prior admission her urine tox screen was negative for opiates. Patient thinks that the methamphetamines that she smoked must of been laced with some opiates. Patient states she uses approximately half a gram of amphetamines and opiates per day. Patient states her last use was yesterday. Patient denies any suicidal homicidal ideations. Patient denies any tremors or seizures. PFSH [facility] Medical History Anxiety and depression Polysubstance abuse Tobacco use Home Medications NK 10/13/22 [History Last Taken Unknown] Allergy/AdvReac Type Severity Reaction Status Date / Time No Known Allergies Allergy Verified 10/20/22 16:57 Family History Father History of alcohol abuse Sober x 12 years. Mother Diabetes Surgical History S/P D&C (status post dilation and curettage) Social History household members: other details: Lives with her parents. Smoking Status: Current every day smoker tobacco type: cigarettes alcohol intake: never substance use type: marijuana, heroin, amphetamines and other details: Also Fentanyl. Reports only snorting, using 1/2-1 gm daily heroin/fentanyl. ROS ROS ED Constitutional Constitutional ED: Denies chills or fever(s) Eyes Eyes: Denies blurry vision or change in vision ENT ENT ED: Denies rhinorrhea or sore throat Cardiovascular Cardiovascular: Denies chest pain or palpitations Respiratory/Chest Respiratory/Chest: Denies cough or dyspnea Gastrointestinal Gastrointestinal: Reports nausea; Denies vomiting Genitourinary Genitourinary ED: Denies dysuria or hematuria Musculoskeletal Musculoskeletal: Denies back pain or neck pain Integumentary Denies abscess or rash Neurologic Neurologic: Denies headache(s) or weakness Allergic/Immunologic Allergic/Immunologic ED: Denies mouth swelling or urticaria EXAM Physical Exam Const Vital Signs: 10/20/22 16:54 Temperature 96 F L Temperature Source Temporal Pulse Rate 93 Respiratory Rate 16 Blood Pressure 122/81 H Blood Pressure Mean 94 Pulse Ox 100 Oxygen Delivery Method Room Air Positive well nourished and well developed General Appearance ED: well developed and NAD HEENT Reports moist mucous membranes Neck supple and no JVD Resp normal respiratory effort and clear to auscultation bilaterally Cardio regular rate, regular rhythm and no murmurs GI normal to inspection, nondistended, normoactive bowel sounds and non-tender Palpation: soft Extremity normal to inspection General Extremety ED: Negative for edema or tenderness General Extremity: Negative for edema Neuro oriented x3, CN's II-XII intact bilaterally and no sensory deficits noted Sensorium / Orientation: alert Motor Exam: strength 5/5 throughout Psych mental status grossly normal Skin no rashes or lesions noted MDM MDM MDM Narrative Medical decision making narrative: Differential diagnosis includes opiate abuse, methamphetamine abuse, alcohol abuse. CBC will be obtained to assess for leukocytosis and anemia. Basic metabolic profile will be obtained to assess for electrolyte abnormality and renal function. Serum hCG will be obtained to assess for status. Serum alcohol level will be obtained for alcohol intoxication. Urine tox screen will be obtained to assess for polysubstance abuse. Lab Data Lab results narrative: CBC was reviewed and was within normal limits. Basic metabolic profile was reviewed and showed a mild hypokalemia of 3.2. Serum hCG was reviewed and was negative. Serum alcohol level was reviewed and was normal. Urine tox screen was ordered and is still pending. Treatment and Re-Evaluation Narrative: Case was discussed with the hospitalist. She will admit the patient to her service for detox. Patient understands and is agreeable with the plan. All questions were answered. Discharge Plan Dx/Rx/DC Orders Clinical Impression: Opiate withdrawal, Substance abuse Disposition Disposition: Acute Care Hospital [facility] Discharge Date/Time: 10/20/22 19:24
[2022-10-21 06:00] VITALS: BP 114/72; PULSE 92; RESP 18; TEMP 36.7; O2SAT 98
[2022-10-21 09:42] VITALS: BP 109/64; PULSE 90; RESP 16; TEMP 36.8; O2SAT 97
[2022-10-21] MEDS: Ferrous Sulfate 325 MG Tablet PO (10:43)
--- NOTE | 2022-10-21 10:55 | ADDICTION ---
TW met with patient to complete ASAM, DUDIT, AUDIT, MSE, and discuss discharge planning. She was found appropriate for ASAM 4.0. PT was alert and oriented x4, willing and engaged to discuss what brought her to treatment as well as discharge plans. She is planning on going to [facility]. The plan would be to direct discharge on 10/22/22. [facility] peer supporter will transport.
[2022-10-21 16:23] VITALS: BP 110/71; PULSE 94; RESP 16; TEMP 36.5; O2SAT 99
[2022-10-21] MEDS: Ibuprofen 600 MG Tablet PO (16:27)
--- NOTE | 2022-10-21 18:38 | PCM.PN.HOSP ---
Reason for Visit Reason for Visit: Diagnoses Iron deficiency anemia, unspecified (10/20/22) Opioid use, unspecified with withdrawal (10/20/22) Subjective Subjective Patient was seen and examined today, she appears comfortable today, she confirms that she is going to do inpatient detox services when she is released from the hospital. I talked with addiction medical social consultant who stated that she would most probably be ready tomorrow for discharge. Objective Data Objective Data Vital Signs: Vital Signs Temp Pulse Resp BP Pulse Ox O2 Del Method 97.7 F L 94 16 110/71 99 Room Air 10/21/22 16:23 10/21/22 16:23 10/21/22 16:23 10/21/22 16:23 10/21/22 16:23 10/21/22 16:23 Oxygen Delivery Method Room Air Weight: 61.28 kg Body Mass Index (BMI) 22.4 Lab / Micro Data Result Diagrams: 10/20/22 18:25 10/20/22 18:25 Labs: Laboratory Results - last 24 hr 10/20/22 18:25: WBC 6.9, RBC 4.53, Hgb 10.8 L, Hct 35.7 L, MCV 78.8 L, MCH 23.8 L, MCHC 30.3 L, RDW Std Deviation 58.5 H, RDW Coeff of Blayne 20.9 H, Plt Count 250, MPV 9.7, Immature Gran % (Auto) 0.300, Neut % (Auto) 45.2 L, Lymph % (Auto) 38.8, Wilbarger % (Auto) 6.1, Eos % (Auto) 8.6 H, Baso % (Auto) 1.0, Absolute Neuts (auto) 3.1, Absolute Lymphs (auto) 2.69, Nucleated RBC % 0, Differential Comment SCANNED, Anisocytosis 1+ 10/20/22 18:25: Sodium 141, Potassium 3.2 L, Chloride 104, Carbon Dioxide 28.0, Anion Gap 9, BUN 26 H, Creatinine 1.05 H, Estim Creat Clear Calc 70.50, Est GFR (MDRD) Af Amer 79, Est GFR (MDRD) Non-Af 65, BUN/Creatinine Ratio 24.8 H, Glucose 104, Calcium 8.8 10/20/22 18:25: Ethyl Alcohol 4.0 10/20/22 18:25: Serum , Qual NEGATIVE Physical Exam Const alert, oriented x3, no apparent distress and healthy appearing General Appearance: cooperative, well kempt and well developed Orientation / Consciousness: awake, oriented to person, oriented to place and oriented to time HEENT normocephalic and moist oral mucous membranes Eyes PERRL, EOMs intact bilaterally and conjunctivae normal Neck supple, no JVD and thyroid normal General: trachea midline Resp normal respiratory effort and clear to auscultation bilaterally Auscultation: Negative for rales, rhonchi or wheezes Cardio regular rate, regular rhythm, no murmurs, no rub and no gallops GI normal to inspection, nondistended, normoactive bowel sounds, soft to palpation, non-tender and non-distended Extremity no clubbing, cyanosis or edema Skin no rashes or lesions noted General Skin Exam: no breakdown Neuro oriented x3, CN's II-XII intact bilaterally, no focal motor deficits and no sensory deficits noted Sensorium / Orientation: awake and alert Speech: speech normal Psych affect normal Assessment & Plan Assessment/Plan (1) Opiate withdrawal: PLAN: Plan 1. Opiate withdrawal-continue present medications, she will follow-up with an inpatient detox program at the time of discharge from the hospital #2 polysubstance abuse-complicates care, medical course, recovery, and prognosis #3 iron deficiency anemia-patient will continue oral ferrous sulfate #4 chronic opiate addiction-patient will follow-up for inpatient detox services. Total clinical time spent by myself addressing patient's medical issues, reviewing all the data, and collaborating with patient's care team: 35-minutes Charges/Coding Visit Charges Inpatient E&M: 44383 Subs Hosp L2
[2022-10-21 22:00] VITALS: BP 108/64; PULSE 88; RESP 16; TEMP 36.6; O2SAT 100
[2022-10-22 02:52] VITALS: BP 97/59; PULSE 89; RESP 16; TEMP 36.6; O2SAT 99
[2022-10-22 09:07] VITALS: BP 102/61; PULSE 81; RESP 16; TEMP 36.6; O2SAT 98
[2022-10-22] MEDS: Ferrous Sulfate 325 MG Tablet PO (09:09)
--- NOTE | 2022-10-22 10:51 | DCINST_ITS ---
Discharge Instructions Diet Discharge Diet: No restrictions Activity Discharge Activity: Return to Normal Activity Weight Bearing Status: Full weight bearing Follow Up Care Test Results: Test results from this visit will be discussed in further detail at your follow- up appointment, if applicable. Discharge Plan Admission Admit Date/Time: 10/20/22 18:04 Primary Reason for Your Visit: opiate withdrawal Attending Provider: Erick Prescott Primary Care Provider: Care Physician,No Primary Consulting Providers: Natividad Vega Discharge Orders/Prescriptions Prescriptions: New ferrous sulfate [FeroSul] 325 mg (65 mg iron) Tablet 325 mg PO BID Qty: 60 0RF Referrals / Follow Up: Care Physician,No Primary [Primary Care Provider] - Disposition Disposition (needs filled in before D/C Order can be placed): Home, Self Care
--- NOTE | 2022-10-22 10:54 | DS.PCM_ITS ---
Providers Date of Admission: 10/20/22 Date of Discharge: 10/22/22 Primary Care Physician: No Primary Care Phys Reason For Visit: ACUTE OPIOID WITHDRAWAL Diagnosis Discharge Diagnosis (1) Opiate withdrawal: Status: Resolved Code(s): F11.93 - Opioid use, unspecified with withdrawal Plan 1. Opiate withdrawal-continue present medications, she will follow-up with an inpatient detox program at the time of discharge from the hospital #2 polysubstance abuse-complicates care, medical course, recovery, and prognosis #3 iron deficiency anemia-patient will continue oral ferrous sulfate #4 chronic opiate addiction-patient will follow-up for inpatient detox services. Total clinical time spent by myself addressing patient's medical issues, reviewing all the data, and collaborating with patient's care team: 35-minutes Medications at Discharge Home Medications ferrous sulfate 325 mg (65 mg iron) tablet (FeroSul) 325 mg PO BID #60 tabs Hospital Course Operations None Procedures None Summary of Care Provided Minutes Spent on Discharge: 30 Hospital Course: This 32-year-old white female was seen in the emergency room at [facility] requesting services for detox from opiates. She had recently checked out AMA from the hospital on 10/16/2022 but came back to be readmitted. Patient was admitted to [place] [address] using the opiate detox order set, she was seen in consultation by addiction protective services social worker and arrangements were made for the patient to go directly from the hospital to an inpatient detox facility at the time of discharge from the hospital. On 10/22/2022, patient was seen and examined: On examination she appeared in good health and spirits, she does not appear to be in any distress. Vital signs as documented. Skin warm and dry and without overt rashes. Neck without JVD, thyroid appears normal, trachea is midline, neck is supple. Lungs clear, normal air movement was noted. Heart exam notable for regular rhythm, normal sounds and absence of murmurs, rubs or gallops. Abdomen unremarkable and without evidence of organomegaly, masses, or abdominal aortic enlargement, bowel sounds are present in all 4 quadrants, no abdominal tenderness was noted. Extremities nonedematous, no cyanosis was noted, no clubbing was noted. Neuro: Cranial nerves II through XII are grossly intact, no focal motor deficits were noted, sensation to light touch and pinprick is intact, motor exam 5/5 throughout. Psych: Patient is alert and oriented x3, she does not appear anxious or depressed, she does not appear agitated. Patient was provided with a prescription for ferrous sulfate to take for her iron deficiency anemia at the time of discharge from the hospital on 10/22/2022, she was discharged to an inpatient detox facility in [facility] in stable condition on that date. Weight / BMI Weight Weight: 61.28 kg Body Mass Index (BMI) 22.4 ABG / Lab / Microbiology Data Result Diagrams: 10/20/22 18:25 10/20/22 18:25 D/C Instructions Discharge Diet: No restrictions Weight Bearing Status: Full weight bearing Meaningful Use Info Meaningful Use Diagnoses (Choose all that apply): None applicable Discharge Plan Admission Admit Date/Time: 10/20/22 18:04 Primary Reason for Your Visit: opiate withdrawal Attending Provider: Erick Prescott Primary Care Provider: Care Physician,No Primary Consulting Providers: Natividad Vega Discharge Orders/Prescriptions Prescriptions: New ferrous sulfate [FeroSul] 325 mg (65 mg iron) Tablet 325 mg PO BID Qty: 60 0RF Referrals / Follow Up: Care Physician,No Primary [Primary Care Provider] - Disposition Disposition (needs filled in before D/C Order can be placed): Inpatient Rehab Unit/Facility Charges/Coding Visit Charges Inpatient E&M: 19058 Disch Hosp
== END 2022-10-22 11:00 ==
LOC: ED 17:12 → MS3 10-21 07:28
PROVIDERS: Admitting Provider Internal Medicine; Emergency Provider Emergency Medicine; Visit Provider Internal Medicine
DX: F11.23 Opioid dependence with withdrawal (principal); F15.10 Other stimulant abuse, uncomplicated; D50.9 Iron deficiency anemia, unspecified; F17.210 Nicotine dependence, cigarettes, uncomplicated; F12.10 Cannabis abuse, uncomplicated; Z79.899 Other long term (current) drug therapy
CPT/HCPCS: 80048; 82077; 84703; 85025; 99283; 99406; H0012